=== PATIENT | male | born 1935 | race Asian ===

== ENCOUNTER → 2018-04-28 | Emergency (ER) | payer MEDICARE, OTHER ==
[~2018-04-28] VITALS: Ht 170.2 cm; Wt 72.7 kg
[~2018-04-28] MED LIST: CIPR-278 PO; METF-444 PO; METR500 PO; MULT-1259 PO; NATE120 PO; OLME40 PO; SIMV-261 PO; SITA25 PO; VITAD1000 PO
[2018-04-28 12:00] VITALS: BP 166/80
[2018-04-28 12:34] LABS: GLUCOSE,POINT OF CARE 200 MG/DL (70-110)
== END | disposition home or self-care (01) ==
LOC: EMS 11:32
DX: E11.65 Type 2 diabetes mellitus with hyperglycemia (principal); I10 Essential (primary) hypertension; Z79.82 Long term (current) use of aspirin; Z79.899 Other long term (current) drug therapy
CPT/HCPCS: 99282

== ENCOUNTER → 2019-03-24 | Outpatient (CLI) | payer MEDICARE, OTHER ==
[~2019-03-24] MED LIST changes: -CIPR-278 PO; -METR500 PO; -OLME40 PO; +OLME40TA8 PO
== END | disposition home or self-care (01) ==
LOC: RADPV 11:24
PROVIDERS: ATTEND Internal Medicine
DX: R05 Cough (principal)

== ENCOUNTER 2021-04-19 07:55 | Emergency (ER) | payer OTHER ==
[~2021-04-19] VITALS: Ht 165.1 cm; Wt 68.2 kg
[~2021-04-19 07:55] MED LIST changes: +CHOL100018 PO; -VITAD1000 PO
[2021-04-19] MEDS ORDERED: HYDR10TA31 PO (08:01)
[2021-04-19 08:53] LABS: BASOPHILS % (AUTO) 0.5 % (0.0-2.0); EOSINOPHILS % (AUTO) 0.4 % (1.0-6.0); HEMATOCRIT 44.5 % (41-53); HEMOGLOBIN 14.4 g/dL (13.5-17.5); LYMPHOCYTES # (AUTO) 1.2 K/uL (1.0-4.8); LYMPHOCYTES % (AUTO) 15.5 % (22.0-44.0); MEAN CORPUSCULAR HEMOGLOBIN 28.6 pg (26.0-34.0); MEAN CORPUSCULAR HGB CONC 32.4 G/dL (31.0-37.0); MEAN CORPUSCULAR VOLUME 88 fL (80-100); MONOCYTES # (AUTO) 0.5 K/uL (0.1-1.0); MONOCYTES % (AUTO) 5.8 % (2.0-9.0); NEUTROPHILS # (AUTO) 6.1 K/uL (1.8-7.7); NEUTROPHILS % (AUTO) 77.8 % (40.0-70.0); PLATELET COUNT (AUTO) 185 K/uL (150-450); RED BLOOD CELL COUNT(AUTO) 5.06 MIL/uL (4.50-5.90); RED CELL DISTRIBUTION WIDTH 16.8 % (11.5-14.5)
[2021-04-19] MEDS ORDERED: MECLIZINE HCL 25 MG TABLET PO ONE (09:00)
[2021-04-19] MEDS ORDERED: ACETAMINOPHEN 500 MG TABLET PO ONE (09:00)
[2021-04-19] MEDS ORDERED: ONDANSETRON HCL 4 MG/2 ML VIAL IVP ONE (09:00)
[2021-04-19 09:02] LABS: ANION GAP 12 mmol/L (8-16); CALCIUM, TOTAL 8.4 mg/dL (8.8-10.5); CARBON DIOXIDE 25 mmol/L (22-29); CHLORIDE 104 mmol/L (98-107); CREATININE 1.08 mg/dL (0.60-1.30); GLUCOSE,RANDOM 195 mg/dL (70-110); SODIUM SERUM 141 mmol/L (136-145); UREA NITROGEN, BLOOD 26 mg/dL (7-18)
[2021-04-19 09:05] LABS: GLOMERULAR FILTR. RATE CALC > 60 mL/min (>60)
[2021-04-19 09:08] LABS: ALANINE AMINOTRANSFERASE 21 U/L (12-78); ALBUMIN 3.8 g/dL (3.4-5.0); ALKALINE PHOSPHATASE 72 U/L (46-116); ASPARTATE AMINOTRANSFERASE 24 U/L (15-37); BILIRUBIN,TOTAL 0.8 mg/dL (0.1-1.0); TOTAL PROTEIN, SERUM 7.9 g/dL (6.4-8.2)
[2021-04-19 09:51] VITALS: BP 186/91
== END 2021-04-19 10:55 | disposition home or self-care (01) ==
LOC: EMS 08:06
DX: R42 Dizziness and giddiness (principal); H60.92 Unspecified otitis externa, left ear; R11.10 Vomiting, unspecified
CPT/HCPCS: 36415; 70450; 71045; 80053; 84484; 85025; 93005; 96374; 99285; J2405

== ENCOUNTER 2021-09-25 14:20 | Emergency (ER) | payer OTHER ==
[~2021-09-25 14:20] MED LIST changes: +HYDR10TA31 PO
== END 2021-09-25 15:03 | disposition left against medical advice (07) ==
LOC: EMS 14:20
DX: Z00.00 Encounter for general adult medical examination without abnormal findings (principal); Z53.21 Procedure and treatment not carried out due to patient leaving prior to being seen by health care provider

== ENCOUNTER 2023-11-21 08:25 | Emergency (ER) | payer MEDICARE, OTHER ==
[~2023-11-21] VITALS: Ht 167.6 cm; Wt 75.0 kg
[~2023-11-21 08:25] MED LIST changes: +OLME40TA70 PO; -OLME40TA8 PO
[2023-11-21 08:26] VITALS: TEMP 98.2
[2023-11-21] MEDS ORDERED: OFLO5DRO4 AU (09:06)
[2023-11-21 09:15] VITALS: BP 154/82; PULSE 64; RESP 18
[2023-11-21] MEDS: OFLOXACIN 0.3% 5 ML OTIC SOLUTION AU ONE (09:20)
== END 2023-11-21 09:35 | disposition home or self-care (01) ==
LOC: EMS 08:43
DX: H60.92 Unspecified otitis externa, left ear (principal); E11.9 Type 2 diabetes mellitus without complications; E78.00 Pure hypercholesterolemia, unspecified; I10 Essential (primary) hypertension; Z98.890 Other specified postprocedural states
CPT/HCPCS: 99283

== ENCOUNTER 2024-06-26 08:19 | Emergency (ER) | payer MEDICARE, OTHER ==
[~2024-06-26] VITALS: Ht 167.6 cm; Wt 72.7 kg
[~2024-06-26 08:19] MED LIST changes: -NATE120 PO; +OFLO5DRO4 AU; +[UNRECOGNIZED DRUG - CODE] PO
[2024-06-26 08:29] VITALS: BP 160/79; TEMP 97.6; O2SAT 98
[2024-06-26] MEDS: LIDOCAINE 5% TRANSDERMAL PATCH TD ONE (10:48)
[2024-06-26 11:05] VITALS: PULSE 64; RESP 16; O2SAT 99
[2024-06-26] MEDS ORDERED: ACET-3385 PO (11:21)
[2024-06-26] MEDS ORDERED: LIDO700A15 TP (11:21)
== END 2024-06-26 12:20 | disposition home or self-care (01) ==
LOC: EMS 08:19
DX: S20.212A Contusion of left front wall of thorax, initial encounter (principal); E11.9 Type 2 diabetes mellitus without complications; I10 Essential (primary) hypertension; W07.XXXA Fall from chair, initial encounter; Y93.89 Activity, other specified; Y92.89 Other specified places as the place of occurrence of the external cause; Y99.8 Other external cause status
CPT/HCPCS: 99284; 71101; 73503; G0238